=== PATIENT | female | born 1975 | race Caucasian/White ===

== ENCOUNTER 2024-03-18 17:21 | Emergency (ER) | payer SELFPAY ==
[2024-03-18 17:22] VITALS: BP 133/86; PULSE 116; RESP 20; TEMP 36.5; O2SAT 94; BMI 31.6
--- NOTE | 2024-03-18 17:35 | EDS_ITS ---
HPI History of Present Illness Chief Complaint: General Illness Informant: patient Onset/Context/Timing Onset: Weeks Narrative Narrative: Patient presents with a 1 to 2-week history of subjective fever and chills with headache, body aches, cough and congestion. She does not have a thermometer at home but does believe she is been running a fever. She has been coughing up green sputum and reports green drainage from her nose. She has not taken a COVID test. She does have a smoking history but denies history of asthma or COPD. She states she was sick with similar about 2 months ago. PFSH PFSH Medical History no medical history no medical history Home Medications doxycycline monohydrate 100 mg capsule 100 mg PO BID #20 CAPSULES 03/18/24 [Rx Last Taken Unknown] Allergy/AdvReac Type Severity Reaction Status Date / Time No Known Allergies Allergy Verified 03/18/24 17:23 Social History Smoking Status: Never smoker ROS ROS ED Constitutional Constitutional ED: Reports chills, fever(s) and subjective Eyes Eyes: Denies change in vision or discharge from eye(s) ENT ENT ED: Denies discharge from eye(s), rhinorrhea or sore throat Cardiovascular Cardiovascular: Denies chest pain or palpitations Respiratory/Chest Respiratory/Chest: Reports cough, dyspnea and sputum Gastrointestinal Gastrointestinal: Denies abdominal pain, nausea or vomiting Genitourinary Genitourinary ED: Denies dysuria Musculoskeletal Musculoskeletal: Reports myalgias; Denies back pain or extremity pain Integumentary Denies Abrasions or rash Neurologic Neurologic: Reports headache(s); Denies weakness Psychiatric Psychiatric: Denies anxiety or depression Allergic/Immunologic Allergic/Immunologic ED: Denies lip swelling or urticaria EXAM Physical Exam Const Vital Signs: 03/18/24 17:22 03/18/24 17:53 03/18/24 17:35 Temperature 97.7 F L Temperature Source Temporal Pulse Rate 116 H 110 H Respiratory Rate 20 H 17 Respiratory Effort Short of Breath Respiratory Pattern Normal Normal Blood Pressure 133/86 H Blood Pressure Mean 101 Pulse Ox 94 Oxygen Delivery Method Room Air Positive well nourished and well developed General Appearance ED: well developed HEENT Reports moist mucous membranes Eyes EOMs intact bilaterally Chest Wall inspection of chest normal and palpation of chest normal Resp normal respiratory effort and clear to auscultation bilaterally Cardio regular rhythm Rate: tachycardic GI non-tender Palpation: soft Extremity normal to inspection Neuro oriented x3 and no sensory deficits noted Motor Exam: strength 5/5 throughout Psych mental status grossly normal Skin no rashes or lesions noted MDM MDM MDM Narrative Medical decision making narrative: IV line established. Labwork obtained to evaluate for leukocytosis, anemia, and electrolyte derangement. Patient given a liter of IV fluids along with a dose of Toradol. DuoNeb treatment provided for subjective wheezing. Chest x-ray obtained to evaluate for acute lung pathology, cardiac size, or mediastinal abnormality. Swab for COVID, influenza, and RSV will be obtained. History & Record Review Discussion w/independent historian: Patient Lab Data Attestation: I reviewed the patient's lab results. Labs: Laboratory Results - last 24 hr 03/18/24 17:41 WBC 9.5 RBC 4.30 Hgb 13.2 Hct 39.0 MCV 90.7 MCH 30.7 MCHC 33.8 RDW Std Deviation 39.8 RDW Coeff of Kole 11.9 Plt Count 186 MPV 9.8 Immature Gran % (Auto) 0.200 Neut % (Auto) 76.3 H Lymph % (Auto) 17.1 L [place] % (Auto) 5.4 Eos % (Auto) 0.7 Baso % (Auto) 0.3 Absolute Neuts (auto) 7.2 Absolute Lymphs (auto) 1.62 Nucleated RBC % 0 Sodium 140 Potassium 3.5 Chloride 104 Carbon Dioxide 31.0 Anion Gap 5 BUN 9 Creatinine 0.81 Estim Creat Clear Calc 114.19 Est GFR (MDRD) Af Amer 96 Est GFR (MDRD) Non-Af 80 BUN/Creatinine Ratio 11.1 Glucose 110 H Calcium 8.7 Radiography Chest X-Ray - ED: 1 View, Read by ED Physician and - (Fluid in the fissure on the right. No focal infiltrate.) Diagnostic Testing: Clinical Impression(s) from Imaging Studies Chest X-Ray 03/18/24 17:43 IMPRESSION: Thickening of the minor fissure consistent with possible pleurisy Electronically Signed: Sergei Glaser MD at 18:20 EDT , Treatment and Re-Evaluation :: On repeat evaluation patient does feel improved. CBC was normal white count at 9.5 with 76% neutrophils. Hemoglobin is 13.2. Chemistry studies unremarkable. Swab for COVID, influenza, and RSV is negative. Portable chest x-ray per my interpretation reveals fluid in the fissure on the right, but no evidence of focal infiltrate. Radiology interpretation reviewed and agrees. Test results discussed with the patient. I advised her that she may have a viral URI, but with symptoms ongoing for 2 weeks I will cover her with an antibiotic. She is from out of town and heading home tomorrow and will follow with her PCP. Discharge Plan Triage Chief Complaint: General Illness ED Provider: Sara Levine Dx/Rx/DC Orders Clinical Impression: Bronchitis Instructions: ED Upper Resp Infec Abx Tx Prescriptions: New doxycycline monohydrate 100 mg capsule 100 mg PO BID Qty: 20 0RF Primary Care Provider: Care Physician,No Primary Referrals: [facility] Doctor,Out of [Non-Staff] - 1-2 Weeks Disposition Disposition: Home, Self Care
--- NOTE | 2024-03-18 17:43 | RAD_ITS ---
STUDY: X-RAY CHEST REASON FOR EXAM: Female, 48 years old. COUGH, SOB TECHNIQUE: Single frontal view of the chest. COMPARISON: None. FINDINGS: The lungs are clear and expanded. Thickening of the minor fissure. Normal size heart. Normal mediastinum and lesley. Normal visualized pulmonary arteries. Normal visualized aortic arch and descending thoracic aorta. Normal visualized thoracic spine. Normal visualized ribs, clavicles, and shoulders. There is no demonstrated abnormality of the visualized soft tissue structures of the upper abdomen. RAD/Chest 1 View (Portable) IMPRESSION: Thickening of the minor fissure consistent with possible pleurisy Electronically Signed: Sergei Glaser MD at 18:20 EDT ,
[2024-03-18 17:52] LABS: Absolute Lymphocyte Count 1.62 X10^3/uL (0.83-4.51); Absolute Neutrophil Count 7.2 X10^3/uL (2.0-7.7); Basophil# 0.03 X10^3/uL; Basophil% 0.3 % (0-1); Eosinophil# 0.07 X10^3/uL; Eosinophils% 0.7 % (0-5); Hemoglobin 13.2 g/dL (12.0-15.0); Lymphocyte # 1.62 X10^3/ul (0.83-4.51); Lymphocyte % 17.1 % (19-41); Mean Corp Hgb Conc 33.8 g/dL (32-36); Mean Corpuscular Hgb 30.7 pg (27.0-32.0); Mean Corpuscular Volume 90.7 fL (81-99); Mean Platelet Vol. 9.8 fl (6.2-12.0); Monocyte# 0.51 X10^3/uL; Monocyte% 5.4 % (0-10); NRBC Flagged by Analyzer 0 % (0-5); Neutrophil # 7.24 X10^3/uL (2.7-7.7); Neutrophil % 76.3 % (47-70); Platelet Count 186 K/mm3 (150-450); RBC Distribution Width CV 11.9 % (11.6-14.6); RBC Distribution Width SD 39.8 fl (35.1-43.9); White Blood Count 9.5 K/mm3 (4.4-11.0)
[2024-03-18] MEDS: Ipratropium/Albuterol Sulfate 3 ML AMPUL.NEB INHALATION (17:52)
[2024-03-18 17:53] VITALS: PULSE 110; RESP 17
[2024-03-18] MEDS: Ketorolac 30 MG/ML Syringe IV (17:56)
[2024-03-18] MEDS: 0.9% Normal Saline (1000mL) 1,000 ML 1000 ML IV (17:56)
[2024-03-18 18:06] LABS: Anion Gap 5 (5-15); BUN 9 mg/dL (7-18); BUN/Creat Ratio 11.1 RATIO (10-20); Calcium,Total 8.7 mg/dL (8.5-10.1); Chloride 104 mmol/L (98-107); Creatinine, Serum 0.81 mg/dL (0.55-1.02); EST Glomerular Filtration Rate 80 mL/min (>60); Est Glom Filt Rate - Afr Amer 96 mL/min (>60); Estimated Creatinine Clearance 114.19 ml/min; Glucose 110 mg/dL (74-106); Potassium 3.5 mmol/L (3.5-5.1); Sodium Level 140 mmol/L (136-145)
[2024-03-18 19:12] VITALS: BP 133/89; PULSE 67; RESP 16; TEMP 36.9; O2SAT 97
== END 2024-03-18 19:38 | disposition home or self-care (01) ==
PROVIDERS: Emergency Provider Emergency Medicine; Visit Provider Emergency Medicine
DX: J40 Bronchitis, not specified as acute or chronic (principal); Z11.52 Encounter for screening for COVID-19; Z87.891 Personal history of nicotine dependence
CPT/HCPCS: 71045; 80048; 85025; 87631; 94640; 96361; 96374; 99284; J7030; A4216